=== PATIENT | female | born 1950 | race Caucasian/White ===

== ENCOUNTER 2017-07-07 09:35 | Outpatient (CLI) | payer MEDICARE, BC ==
--- NOTE | 2017-07-07 12:25 | MRI ---
LEFT SHOULDER MRI WITHOUT IV CONTRAST: Date: 07/07/17 HISTORY: 67-year-old female with left shoulder pain. TECHNIQUE: Multiplanar, multisequence MRI examination of the left shoulder is performed. FINDINGS: There is marked AC joint arthrosis with prominent hypertrophic osteophytosis with prominent downslopi ng of the lateral acromion with an undersurface spur of the lateral acromion, as well as some downslo ping of the anterior acromion. There is a complete full thickness supraspinatus tendon tear with extr action back to near the level of the glenoid. This tear extends into the anterior infraspinatus tendo n. The more posterior fibers of the infraspinatus tendon appear intact. There is some associated fatemeh mination of the infraspinatus tendon extending to the myotendinous junction. There is no intact bicep s tendon seen consistent with complete tear and retraction. The subscapularis tendon is very attenuat ed, particularly in the cranial portion consistent with an incomplete thickness tear. Multiple lesser tuberosity subchondral cystic changes are noted. There is very severely blunting superior labrum whi ch may be related to biceps tear or severe degenerative change. There are tears of the superior labru m with some anterior and posterior extension. There is moderate muscle volume loss of the supraspinatus and infraspinatus muscles, and mild muscle volume loss of the subscapularis muscle. IMPRESSION: Severe AC joint hypertrophic changes with downsloping of anterior and lateral acromion and undersurfa ce lateral acromial spur. Extensive rotator cuff tears as above. POS: [facility]
== END 2017-07-07 09:36 | disposition home or self-care (01) ==
LOC: TBSIIMAG 09:35
PROVIDERS: ATTEND Orthopaedic Surgery
DX: M75.102 Unspecified rotator cuff tear or rupture of left shoulder, not specified as traumatic (principal); M25.512 Pain in left shoulder; M75.92 Shoulder lesion, unspecified, left shoulder

== ENCOUNTER 2017-08-03 13:05 | Outpatient (CLI) | payer MEDICARE, BC ==
[2017-08-03 14:32] LABS: #Basophils 0.1 thou/uL (0.0-0.2); #Eosinphils 0.3 thou/uL (0.0-0.7); #Lymphocytes 1.7 thou/uL (1.20-3.40); #Monocytes 0.8 thou/uL (0.11-0.59); #Neutrophils 4.8 thou/uL (1.40-6.50); %Basophils 1.1 % (0.0-1.0); %Eosinophils 4.4 % (0.0-10.0); %Lymphocytes 22.4 % (21.0-51.0); %Monocytes 9.9 % (0.0-10.0); %Neutrophils 62.2 % (42.0-75.0); Hemoglobin 11.3 g/dL (12.0-16.0); Mean Corpuscular HGB CONC 33.2 g/dL (32.0-36.0); Mean Corpuscular Hemoglobin 28.8 pg (27.0-31.0); Mean Corpuscular Volume 86.7 fl (81.0-99.0); Mean Platelet Volume 6.9 fL (7.4-10.4); Platelet Count 347 thou/uL (130-400); RBC Distribution Width 12.4 % (11.5-14.5); Red Blood Cell (RBC) Count 3.91 mill/uL (4.20-5.40); White Blood Cell (WBC) Count 7.7 thou/uL (4.8-10.8)
[2017-08-03 15:05] LABS: Anion Gap 8 mmol/L (10-20); BUN (Urea Nitrogen) 21 mg/dL (9.8-20.1); Calc. Creatinine Clearance 0 mL/min (70-130); Calcium 9.6 mg/dL (7.8-10.44); Carbon Dioxide 26 mmol/L (23-31); Chloride 102 mmol/L (98-107); Estimated GFR-MDRD 78; Glucose 93 mg/dL (80-115); Potassium 3.1 mmol/L (3.5-5.1); Sodium 133 mmol/L (136-145)
--- NOTE | 2017-08-03 20:28 | EKG ---
Test Reason : Blood Pressure : / mmHG Vent. Rate : 070 BPM Atrial Rate : 070 BPM P-R Int : 170 ms QRS Dur : 094 ms QT Int : 418 ms P-R-T Axes : 068 067 057 degrees QTc Int : 451 ms Normal sinus rhythm Normal ECG When compared with ECG of 06-MAY-2009 09:03, Nonspecific T wave abnormality now evident in Anterior leads QT has lengthened Confirmed by KERI JIMENEZ (2) on 08/03/2017 8:28:20 PM Referred By: AUR[facility]A Confirmed By:KERI JIMENEZ
== END 2017-08-03 13:06 | disposition home or self-care (01) ==
LOC: LABBT 13:05
PROVIDERS: ATTEND Orthopaedic Surgery
DX: Z01.818 Encounter for other preprocedural examination (principal); M75.102 Unspecified rotator cuff tear or rupture of left shoulder, not specified as traumatic
CPT/HCPCS: 80048; 85025; 93005; 93010

== ENCOUNTER 2017-08-04 06:19 | Day surgery (SDC) | payer MEDICARE, BC ==
[2017-08-03 13:30] VITALS: BMI 28.3
[2017-08-04] MEDS ORDERED: Lidocaine 2% Jelly 5 ML TUBE ONE (06:22)
[2017-08-04] MEDS ORDERED: Ondansetron HCl/PF 4 MG/2 ML Vial ONE ×2 (06:22→09:40)
[2017-08-04] MEDS ORDERED: CEFAZOLIN/Water 2 GM/20 ML SYRINGE ONE (06:42)
[2017-08-04] MEDS ORDERED: Fentanyl 100 MCG/2 ML VIAL ONE (06:43)
[2017-08-04] MEDS ORDERED: Midazolam HCl 2 mg/2 ml Vial ONE (06:43)
[2017-08-04] MEDS ORDERED: Ropivacaine HCl/PF 1,100 MG in Sodium Chloride 0.9% 440 ML NERVE BLCK SCH (07:35)
[2017-08-04] MEDS ORDERED: Ondansetron HCl/PF 4 MG/2 ML Vial IVP PRN (07:35)
[2017-08-04] MEDS ORDERED: Promethazine HCl 25 MG/ML VIAL IM PRN (07:35)
[2017-08-04] MEDS ORDERED: traMADol HCl 50 MG TAB PO PRN ×2 (07:35)
[2017-08-04] MEDS ORDERED: Zolpidem Tartrate 5 MG TAB PO PRN (07:35)
[2017-08-04] MEDS ORDERED: HYDROcodone/Acetaminophen 10/325 mg Tablet PO PRN ×2 (07:35)
[2017-08-04] MEDS ORDERED: Fentanyl 100 MCG/2 ML VIAL IV PRN (07:36)
[2017-08-04] MEDS ORDERED: Dexamethasone 20 MG/5 ML VIAL ONE (09:40)
[2017-08-04] MEDS ORDERED: PHENYLEPHRINE-NS 100 MCG/ML 10 ML SYRINGE ONE (09:40)
[2017-08-04] MEDS ORDERED: PROPOFOL 200 MG/20 ML VIAL ONE (09:40)
[2017-08-04] MEDS ORDERED: Ropivacaine 0.5% HCl/PF (150 MG/30 ML VIAL) ONE (11:51)
[2017-08-04] MEDS ORDERED: Ropivacaine 0.2% HCl/PF (40 MG/20 ML VIAL) ONE (11:51)
[2017-08-04] MEDS ORDERED: Ketorolac Tromethamine 30 MG/ML VIAL IVP SCH (12:00)
--- NOTE | 2017-08-04 15:22 | OP ---
DATE OF PROCEDURE: 08/04/2017 PREOPERATIVE DIAGNOSES: Left shoulder impingement, AC joint arthritis and massive rotator cuff tear. POSTOPERATIVE DIAGNOSES: 1. Left shoulder impingement, AC joint arthritis and massive rotator cuff tear. 2. The patient had performed an auto biceps tenodesis to the cuff and the biceps was no longer attac hed to the superior labrum. PROCEDURE: Left shoulder open subacromial decompression, open distal clavicle excision and open rota tor cuff repair. SURGEON: Daniel Green M.D. [employer] FINAL INSPECTOR: Abdifatah Garcia PA-C. BLOOD LOSS: 50 mL. ANESTHESIA: The patient had general anesthetic, also had a block. IMPLANTS: We used two Arthrex double loaded rotator cuff anchors, one Arthrex triple loaded rotator cuff anchor and we used two BioComposite 4.75 mm SwiveLocks for double row repair. DISPOSITION: She did go to the recovery room in stable condition. INDICATIONS: A 67-year-old female who is active, who has been having problems with left shoulder tom n and weakness and at this time has decided to have her shoulder repaired. DESCRIPTION OF PROCEDURE: After all appropriate consent forms were explained and signed, Ms. Echols was taken to the operating room and was given a general anesthetic. She was then placed in a beach chair position and all bony prominences were well padded. At this time, the left shoulder and upper extremity were prepped and draped in standard surgical fashion. Incision line was made with a 10 yisel de down through skin. Bovie was used to coagulate any brisk venous bleeding. Full thickness flaps w ere taken to expose the AC joint as well as the anterior acromion and at this time, a saw was used to perform an anterior inferior acromioplasty as well as a distal clavicle resection. All bony edges w ere smoothed off with a rasp. We then thoroughly irrigated and dried. At this time, we removed the bursa and were able to obtain good visualization of the rotator cuff. The rotator cuff was torn from the superior aspect of the subscapularis, back aspect of the infraspinatus or beginning of teres. I t had some retraction in the back corner, had a small L split in the tendon itself. All edges of the tendon were freshened up with a knife or scissors. At this time, soft tissue was removed off of the tuberosity using a knife and a rongeur. The wound and the joint were thoroughly irrigated. We pull ed traction on the arm and we were able to visualize inside the glenohumeral joint. The biceps tendo n was no longer attached to the superior labrum and it was tucked in the underlying portion of the ro tator cuff and so we decided since she is already auto tenodesis, we would leave this alone. At this time, we placed a double anchor in the superior footprint of the subscapularis and the stitches were run through the top of the subscapularis and the superior portion of the capsule. These were tied a nd cut. A triple loaded anchor and double-loaded anchor were then placed more posteriorly and all th e sutures were run through the supra and infraspinatus in mattress fashion and the L split was closed down by placing one arm of each suture through each side of the L split and these were tied tight. The split was closed down as well as pull the tendon down to the bone. We then split the sutures and brought these further down the lateral aspect of the arm into two 4.75 mm BioComposite SwiveLocks in standard fashion. At this time, we took the arm through full range of motion. The rotator cuff was repaired in its entirety and at this time, we thoroughly irrigated again with some saline. We then used multiple interrupted #1 Ethibond sutures to reapproximate our deltoid through the acromion. We then over ran this with a running #2 Vicryl, 2-0 Vicryl, and surgical sirisha were then used for skin . Bulky sterile dressing was applied and at this time, the patient was awakened and taken to the rec overy room in stable condition. All counts were correct at the end of the case and she did receive p reoperative IV antibiotics.
== END 2017-08-04 13:06 | disposition home or self-care (01) ==
LOC: SDC 06:19
PROVIDERS: ATTEND Orthopaedic Surgery
PROC: 0LQ20ZZ Repair Left Shoulder Tendon, Open Approach (ICD-10-PCS; principal; 2017-08-04)
PROC: 0RQH0ZZ Repair Left Acromioclavicular Joint, Open Approach (ICD-10-PCS; 2017-08-04)
PROC: 0PBB0ZZ Excision of Left Clavicle, Open Approach (ICD-10-PCS; 2017-08-04)
DX: M75.102 Unspecified rotator cuff tear or rupture of left shoulder, not specified as traumatic (principal); M75.42 Impingement syndrome of left shoulder; M19.012 Primary osteoarthritis, left shoulder; I10 Essential (primary) hypertension; Z79.1 Long term (current) use of non-steroidal anti-inflammatories (NSAID); Z79.82 Long term (current) use of aspirin; Z79.899 Other long term (current) drug therapy; Z88.5 Allergy status to narcotic agent
CPT/HCPCS: 23120; 23412; C1713 ×2; J1100; J2250; J2405; J2704; J2795; J3010; J7050

== ENCOUNTER 2017-11-16 09:05 | Day surgery (SDC) | payer MEDICARE, BC ==
[2017-11-15 12:53] VITALS: BMI 28.3
[2017-11-16] MEDS ORDERED: Midazolam HCl 2 mg/2 ml Vial ONE (09:53)
[2017-11-16] MEDS ORDERED: Fentanyl 100 MCG/2 ML VIAL ONE ×2 (09:53→10:37)
[2017-11-16] MEDS ORDERED: CEFAZOLIN/Water 2 GM/20 ML SYRINGE ONE (10:39)
[2017-11-16 10:41] LABS: #Basophils 0.1 thou/uL (0.0-0.2); #Eosinphils 0.3 thou/uL (0.0-0.7); #Lymphocytes 1.5 thou/uL (1.20-3.40); #Monocytes 0.7 thou/uL (0.11-0.59); #Neutrophils 4.5 thou/uL (1.40-6.50); %Eosinophils 4.1 % (0.0-10.0); %Lymphocytes 21.3 % (21.0-51.0); %Monocytes 9.4 % (0.0-10.0); %Neutrophils 64.2 % (42.0-75.0); Mean Corpuscular HGB CONC 33.1 g/dL (32.0-36.0); Mean Corpuscular Hemoglobin 29.4 pg (27.0-31.0); Mean Corpuscular Volume 88.6 fL (78.0-98.0); Mean Platelet Volume 6.8 fL (7.4-10.4); Platelet Count 347 thou/uL (130-400); RBC Distribution Width 12.5 % (11.5-14.5); Red Blood Cell (RBC) Count 3.75 mill/uL (4.20-5.40)
[2017-11-16 11:07] LABS: Anion Gap 12 mmol/L (10-20); BUN (Urea Nitrogen) 19 mg/dL (9.8-20.1); Calc. Creatinine Clearance 81 mL/min (70-130); Calcium 9.6 mg/dL (7.8-10.44); Carbon Dioxide 27 mmol/L (23-31); Chloride 103 mmol/L (98-107); Estimated GFR-MDRD 75; Glucose 96 mg/dL (80-115); Potassium 4.4 mmol/L (3.5-5.1); Sodium 138 mmol/L (136-145)
--- NOTE | 2017-11-16 12:22 | OP ---
DATE OF PROCEDURE: 11/16/2017 PREOPERATIVE DIAGNOSIS: Right distal radius fracture. POSTOPERATIVE DIAGNOSIS: Right distal radius fracture. SURGEON: Daniel Green M.D. [employer] OFFICER: Abdifatah Garcia PA-C. BLOOD LOSS: Minimal. COMPLICATIONS: None. ANESTHESIA: The patient had general anesthetic, she had a preoperative block. IMPLANTS: To the right wrist, Synthes distal radius plate with multiple screws. CONDITION: She did go to the recovery room in stable condition. PROCEDURES: 1. Open reduction internal fixation Right distal radius 2. Placement of short-arm volar splint, right upper extremity. INDICATIONS: Ms. Rosario is a 67-year-old active female who broke her wrist and was felt that she had poor alignment and it would be best for her to have this fixed. The patient agrees and at this time is presenting for open reduction internal fixation. DESCRIPTION OF PROCEDURE: After above appropriate consent forms were explained and signed, she was taken to the operating room and at this time was given general anesthetic. Once anesthesia was appropriate, the patient had a tourniquet placed on the right arm and the right upper extremity was prepped and draped in standard surgical fashion. Limb was exsanguinated and tourniquet taken up to 250 mmHg. Using loupe magnification, a 15 blade was used to incise skin only. Bipolar cautery was then used to coagulate any brisk venous bleeding. The flexor tendon sheath was opened up, the FCR tendon was taken ulnarly. We then used a new blade to open up the floor of the FCR tendon. Soft tissues were then swept ulnarly to expose the pronator. Pronator was sharply taken off the underlying distal radius. Elevator was used to expose the fracture line as well as the bone distal to this as well as proximal to this. Once this was done, we were thoroughly irrigated out our clot. We then performed manual reduction. Applied a plate, pinned this in place, checked our alignment and placement of our plate and once we felt it was good, we placed one bicortical screw along the shaft. We then placed locking screws along the distal row and two more cortical screws proximally. Final films were taken. We then thoroughly irrigated and dried. We were able to place a couple of Vicryl sutures to reapproximate tissue across the plate and along the deep tissue plane. We then placed the sheath tissue over top of the FCR tendon. We then used some nylon sutures to close skin. At this time, a bulky sterile dressing was applied as well as a volar splint. The patient was then awakened and taken to the recovery room in stable condition. All counts were correct at the end of the case. She received preoperative IV antibiotics. Once the tourniquet was let down, the fingers pinked up nicely. NELLY
--- NOTE | 2017-11-16 14:40 | RAD ---
RIGHT WRIST THREE VIEWS: Date: 11-16-17 Provided Clinical History: Post op. FINDINGS: Post-operative changes of volar plate and screw fixation of the distal radial fracture demonstrated. IMPRESSION: As above. POS: [facility]
== END 2017-11-16 14:18 | disposition home or self-care (01) ==
LOC: SDC 09:05
PROVIDERS: ATTEND Orthopaedic Surgery
PROC: 0PSH04Z Reposition Right Radius with Internal Fixation Device, Open Approach (ICD-10-PCS; principal; 2017-11-16)
DX: S52.501A Unspecified fracture of the lower end of right radius, initial encounter for closed fracture (principal); I10 Essential (primary) hypertension; Z79.1 Long term (current) use of non-steroidal anti-inflammatories (NSAID); Z79.82 Long term (current) use of aspirin; Z79.899 Other long term (current) drug therapy; Z96.652 Presence of left artificial knee joint; Z98.890 Other specified postprocedural states; X58.XXXA Exposure to other specified factors, initial encounter
CPT/HCPCS: 25607; 73110; 76001; 80048; 85025; C1713 ×2; J2250; J3010

== ENCOUNTER 2022-02-24 09:51 | Outpatient (CLI) | payer MEDICARE | END 2022-02-24 09:52 | disposition home or self-care (01) | LOC: LABBT 09:51 | PROVIDERS: ATTEND Orthopaedic Surgery | DX: Z01.818 Encounter for other preprocedural examination (principal); M17.11 Unilateral primary osteoarthritis, right knee | CPT/HCPCS: 71046; 93005; 93010 ==

== ENCOUNTER 2022-03-01 05:38 | Observation (INO) | payer MEDICARE ==
[2022-02-24 11:14] LABS: Bilirubin Neg (Negative); Blood, Urine 25 (Negative); Clarity Clear (Clear); Glucose, Urine (Dipstick) Normal (Negative); Ketone, Urine Negative (Negative); Leukocyte Negative (Negative); Nitrite Negative (Negative); Protein, Urine (Dipstick) Negative (Neg-Trace); Specific Gravity, Urine 1.015 (1.005-1.030); Urobilinogen Normal mg/dL (Less than 2)
[2022-02-24 11:25] LABS: #Basophils 0.1 10x3/uL (0.0-0.2); #Eosinphils 0.4 10x3/uL (0.0-0.5); #Monocytes 0.7 10x3/uL (0.0-1.1); #Neutrophils 4.5 10x3/uL (1.5-8.4); %Eosinophils 5.5 % (0.0-6.0); %Lymphocytes 20.5 % (18.0-47.0); %Monocytes 9.3 % (0.0-10.0); %Neutrophils 63.3 % (40.0-75.0); Mean Corpuscular HGB CONC 33.9 g/dL (32.0-36.0); Mean Corpuscular Hemoglobin 31.4 pg (27.0-33.0); Mean Corpuscular Volume 92.7 fl (81.6-98.3); Mean Platelet Volume 9.7 fl (7.4-10.4); Platelet Count 321 10x3/uL (150-450); RBC Distribution Width 12.5 % (11.5-14.5); Red Blood Cell (RBC) Count 3.82 10x6/uL (3.90-5.03); White Blood Cell (WBC) Count 7.1 10x3/uL (3.5-10.5)
[2022-02-24 11:54] LABS: Prothrombin Time 10.4 sec (9.5-12.1)
[2022-02-24 12:00] LABS: Anion Gap 13 mmol/L (10-20); BUN (Urea Nitrogen) 25 mg/dL (9.8-20.1); Calc. Creatinine Clearance 0 mL/min (70-130); Calcium 9.8 mg/dL (7.8-10.44); Carbon Dioxide 26 mmol/L (23-31); Chloride 102 mmol/L (98-107); Estimated GFR 69; Glucose 103 mg/dL (83-110); Potassium 3.8 mmol/L (3.5-5.1); Sodium 137 mmol/L (136-145)
[2022-02-26 09:00] VITALS: BMI 23.3
[2022-03-01] MEDS ORDERED: Vancomycin 1 GM/200 ML (FROZEN) BAG ONE (06:04)
[2022-03-01] MEDS ORDERED: Tranexamic Acid 1,000 MG/10 ML VIAL ONE ×2 (06:04→09:27)
[2022-03-01] MEDS ORDERED: Sodium Chloride 0.9% 100 ML ONE ×2 (06:04→07:00)
[2022-03-01] MEDS ORDERED: fentaNYL PF 100 MCG/2 ML SYRINGE ONE (06:15)
[2022-03-01] MEDS ORDERED: Bupivacaine PF 0.5% 30 ML VIAL ONE ×2 (06:22→06:46)
[2022-03-01] MEDS ORDERED: FENTANYL 50 MCG/ML 1 ML VIAL ONE ×5 (06:45→10:18)
[2022-03-01] MEDS ORDERED: Midazolam HCl 2 mg/2 ml Vial ONE (06:45)
[2022-03-01 06:48] LABS: SARS-CoV-2 NAA Rapid Test Not Detected (NotDetected)
[2022-03-01] MEDS ORDERED: CEFAZOLIN 2 GM VIAL ONE (07:00)
[2022-03-01] MEDS ORDERED: Dexamethasone 20 MG/5 ML VIAL ONE (07:21)
[2022-03-01] MEDS ORDERED: Ondansetron PF 4 MG/2 ML Vial ONE ×2 (07:21→09:41)
[2022-03-01] MEDS ORDERED: PROPOFOL 200 MG/20 ML VIAL ONE (07:21)
[2022-03-01] MEDS ORDERED: HYDROcodone/Acetaminophen 10/325 mg Tablet PO PRN ×2 (07:45)
[2022-03-01] MEDS ORDERED: Promethazine HCl 25 MG/ML VIAL IM PRN ×2 (07:45→09:03)
[2022-03-01] MEDS ORDERED: Ropivacaine 0.2% 550 ML 550 ML NERVE BLCK SCH (07:45)
[2022-03-01] MEDS ORDERED: Ondansetron PF 4 MG/2 ML Vial IVP PRN (07:45)
[2022-03-01] MEDS ORDERED: traMADol HCl 50 MG TAB PO PRN (07:45)
[2022-03-01] MEDS ORDERED: Zolpidem Tartrate 5 MG TAB PO PRN ×2 (07:45→09:03)
[2022-03-01] MEDS ORDERED: diphenhydrAMINE 25 MG CAP PO PRN (09:03)
[2022-03-01] MEDS ORDERED: Acetaminophen 325 MG TAB PO PRN (09:03)
[2022-03-01] MEDS ORDERED: Tranexamic Acid 1,000 MG in Sodium Chloride 0.9% 100 ML IVPB SCH (09:15)
[2022-03-01] MEDS ORDERED: FENTANYL 50 MCG/ML 1 ML VIAL SLOW IVP PRN (10:21)
[2022-03-01] MEDS: FENTANYL 50 MCG/ML 1 ML VIAL SLOW IVP PRN (11:46)
[2022-03-01] MEDS: Ketorolac Tromethamine 30 MG/ML VIAL IVP SCH ×2 (13:04→22:54)
[2022-03-01] MEDS: Sodium Chloride 0.9% 1,000 ML IV SCH ×2 (13:07→17:37)
[2022-03-01] MEDS: CEFAZOLIN 2 GM in Sodium Chloride 0.9% 100 ML IVPB SCH ×2 (14:31→22:54)
[2022-03-01] MEDS: traMADol HCl 50 MG TAB PO PRN (17:30)
[2022-03-01] MEDS ORDERED: Vancomycin 1 GM in Premix Bag 1 BAG IVPB SCH (18:00)
[2022-03-01] MEDS: carBAMazepine 200 MG TAB PO SCH (20:52)
[2022-03-01] MEDS: Amlodipine 5 MG TAB PO SCH (20:53)
[2022-03-01] MEDS: Senokot S 8.6-50 MG TAB PO SCH (20:53)
[2022-03-01] MEDS: Ferrous Gluconate 324 MG TAB PO SCH (20:53)
[2022-03-01] MEDS: Lisinopril 20 MG TAB PO SCH (20:54)
[2022-03-01] MEDS: Atorvastatin Calcium 10 MG TAB PO SCH (20:54)
[2022-03-01] MEDS: Aspirin 81 mg Enteric Coated Tablet PO SCH (20:54)
[2022-03-01] MEDS ORDERED: Aspirin 81 mg Enteric Coated Tablet PO SCH (21:00)
[2022-03-01] MEDS ORDERED: Non-Formulary Item 1 EACH (Iron [Iron] 18 MG Tablet) PO SCH (21:00)
[2022-03-02] MEDS: traMADol HCl 50 MG TAB PO PRN ×2 (01:33→11:46)
[2022-03-02] MEDS: Sodium Chloride 0.9% 1,000 ML IV SCH ×2 (04:22→17:59)
[2022-03-02] MEDS: Ketorolac Tromethamine 30 MG/ML VIAL IVP SCH ×3 (05:46→21:27)
[2022-03-02 06:33] LABS: Hemoglobin 10.1 g/dL (12.0-16.0); Mean Corpuscular HGB CONC 31.7 g/dL (32.0-36.0); Mean Corpuscular Hemoglobin 30.8 pg (27.0-31.0); Mean Corpuscular Volume 97.2 fl (78.0-98.0); Mean Platelet Volume 7.3 fL (7.4-10.4); Platelet Count 227 10x3/uL (130-400); RBC Distribution Width 11.3 % (11.5-14.5); Red Blood Cell (RBC) Count 3.28 mill/uL (4.20-5.40); White Blood Cell (WBC) Count 9.2 10x3/uL (4.8-10.8)
[2022-03-02] MEDS: Aspirin 81 mg Enteric Coated Tablet PO SCH ×2 (09:18→20:10)
[2022-03-02] MEDS: Senokot S 8.6-50 MG TAB PO SCH ×2 (09:18→20:13)
[2022-03-02] MEDS: Cholecalciferol 1,000 UNITS (25 MCG) TAB PO SCH (09:19)
[2022-03-02] MEDS: Multivitamin W/ Minerals 1 TAB PO SCH (09:19)
[2022-03-02] MEDS: Amlodipine 5 MG TAB PO SCH ×2 (09:19→20:09)
[2022-03-02] MEDS: Hydrochlorothiazide 25 MG TAB PO SCH (09:19)
[2022-03-02] MEDS: Ferrous Gluconate 324 MG TAB PO SCH ×2 (09:19→20:11)
[2022-03-02] MEDS: FENTANYL 50 MCG/ML 1 ML VIAL SLOW IVP PRN ×2 (09:19→22:36)
[2022-03-02] MEDS: HYDROcodone/Acetaminophen 10/325 mg Tablet PO PRN ×3 (17:30→21:37)
[2022-03-02] MEDS: Ondansetron PF 4 MG/2 ML Vial IVP PRN (17:30)
[2022-03-02] MEDS: Atorvastatin Calcium 10 MG TAB PO SCH (20:10)
[2022-03-02] MEDS: carBAMazepine 200 MG TAB PO SCH (20:11)
[2022-03-02] MEDS: Lisinopril 20 MG TAB PO SCH (20:12)
[2022-03-03] MEDS: Sodium Chloride 0.9% 1,000 ML IV SCH ×2 (01:19→10:59)
[2022-03-03] MEDS: HYDROcodone/Acetaminophen 10/325 mg Tablet PO PRN ×2 (02:24→06:04)
[2022-03-03 05:47] LABS: Hemoglobin 10.1 g/dL (12.0-16.0); Mean Corpuscular HGB CONC 32.3 g/dL (32.0-36.0); Mean Corpuscular Hemoglobin 31.5 pg (27.0-31.0); Mean Corpuscular Volume 97.8 fl (78.0-98.0); Mean Platelet Volume 7.2 fL (7.4-10.4); Platelet Count 191 10x3/uL (130-400); RBC Distribution Width 11.2 % (11.5-14.5); Red Blood Cell (RBC) Count 3.21 mill/uL (4.20-5.40); White Blood Cell (WBC) Count 7.6 10x3/uL (4.8-10.8)
[2022-03-03] MEDS: Ketorolac Tromethamine 30 MG/ML VIAL IVP SCH ×2 (06:04→14:16)
[2022-03-03] MEDS: Senokot S 8.6-50 MG TAB PO SCH (09:15)
[2022-03-03] MEDS: Hydrochlorothiazide 25 MG TAB PO SCH (09:16)
[2022-03-03] MEDS: Multivitamin W/ Minerals 1 TAB PO SCH (09:16)
[2022-03-03] MEDS: Aspirin 81 mg Enteric Coated Tablet PO SCH (09:16)
[2022-03-03] MEDS: Amlodipine 5 MG TAB PO SCH (09:16)
[2022-03-03] MEDS: Ferrous Gluconate 324 MG TAB PO SCH (09:17)
[2022-03-03] MEDS: Cholecalciferol 1,000 UNITS (25 MCG) TAB PO SCH (09:17)
[2022-03-03] MEDS: Ondansetron PF 4 MG/2 ML Vial IVP PRN (10:33)
[2022-03-03 12:36] VITALS: BP 125/76; TEMP 98.1
== END 2022-03-03 15:05 | disposition home or self-care (01) ==
LOC: SDC 05:38 → EDSTATUS 10:00 → SJJU 11:37
PROVIDERS: ADMIT Orthopaedic Surgery; ATTEND Orthopaedic Surgery
PROC: 0SRC0J9 Replacement of Right Knee Joint with Synthetic Substitute, Cemented, Open Approach (ICD-10-PCS; principal; 2022-03-01)
DX: M17.11 Unilateral primary osteoarthritis, right knee (principal); I10 Essential (primary) hypertension; Z79.1 Long term (current) use of non-steroidal anti-inflammatories (NSAID); Z79.82 Long term (current) use of aspirin; Z79.899 Other long term (current) drug therapy; Z88.5 Allergy status to narcotic agent; Z88.8 Allergy status to other drugs, medicaments and biological substances; Z96.652 Presence of left artificial knee joint; Z20.822 Contact with and (suspected) exposure to COVID-19
CPT/HCPCS: 20985; 27447; 80048; 81003; 85025; 85027 ×2; 85610; 86850; 86900; 86901; 87081; 96374; 96375; 96376 ×3; 97110 ×3; 97116 ×2; 97530 ×2; A4306; C1713; C1776; G0378 ×3; J3010 ×2; J3370; U0002; 36415; J1100; J1885; J2250; J2405; J2704; J2795; J3490; J7050; S0020

== ENCOUNTER 2023-02-28 09:23 | Outpatient (CLI) | payer MEDICARE ==
[2023-02-28 11:42] LABS: #Basophils 0.1 10x3/uL (0.0-0.2); #Eosinphils 0.3 10x3/uL (0.0-0.5); #Monocytes 0.7 10x3/uL (0.0-1.1); #Neutrophils 5.6 10x3/uL (1.5-8.4); %Eosinophils 3.9 % (0.0-6.0); %Lymphocytes 14.7 % (18.0-47.0); %Monocytes 9.3 % (0.0-10.0); %Neutrophils 70.6 % (40.0-75.0); Hematocrit 38.7 % (34.9-44.5); Hemoglobin 12.9 g/dL (12.0-15.5); Mean Corpuscular HGB CONC 33.3 g/dL (32.0-36.0); Mean Corpuscular Hemoglobin 30.7 pg (27.0-33.0); Mean Corpuscular Volume 92.1 fl (81.6-98.3); Platelet Count 283 10x3/uL (150-450); RBC Distribution Width 12.2 % (11.5-14.5)
[2023-02-28 11:58] LABS: Anion Gap 14 mmol/L (10-20); BUN (Urea Nitrogen) 27 mg/dL (9.8-20.1); Calc. Creatinine Clearance 0 mL/min (70-130); Calcium 9.8 mg/dL (7.8-10.44); Carbon Dioxide 27 mmol/L (23-31); Chloride 103 mmol/L (98-107); Estimated GFR 69; Glucose 84 mg/dL (83-110); Potassium 3.7 mmol/L (3.5-5.1); Sodium 140 mmol/L (136-145)
[2023-02-28 12:03] LABS: Prothrombin Time 10.3 sec (9.5-12.1)
== END 2023-02-28 09:24 | disposition home or self-care (01) ==
LOC: LABBT 09:23
PROVIDERS: ATTEND Orthopaedic Surgery
DX: Z01.818 Encounter for other preprocedural examination (principal); M12.812 Other specific arthropathies, not elsewhere classified, left shoulder
CPT/HCPCS: 80048; 85025; 85610; 93005; 93010

== ENCOUNTER 2023-11-04 12:00 | Inpatient (IN) | payer MEDICARE ==
[2023-11-10] MEDS ORDERED: PROPOFOL 20 ML ONE (09:27)
[2023-11-10] MEDS ORDERED: fentaNYL PF 100 MCG/2 ML SYRINGE ONE (09:28)
[2023-11-10] MEDS ORDERED: Rocuronium Bromide 10 MG/ML (10ML VIAL) ONE (09:28)
[2023-11-10] MEDS ORDERED: CEFAZOLIN 2 GM VIAL ONE ×2 (09:41→17:17)
[2023-11-10] MEDS ORDERED: Sodium Chloride 0.9% 100 ML ONE ×4 (09:42→17:18)
[2023-11-10] MEDS ORDERED: Tranexamic Acid 1,000 MG/10 ML VIAL ONE (09:55)
[2023-11-10] MEDS ORDERED: Vancomycin 1 GM/200 ML (FROZEN) BAG ONE (09:55)
[2023-11-10] MEDS ORDERED: Midazolam HCl 2 mg/2 ml Vial ONE (09:59)
[2023-11-10] MEDS ORDERED: Ropivacaine 0.2% HCl/PF 20 ML ONE (09:59)
[2023-11-10] MEDS ORDERED: fentaNYL 50 mcg/mL 1 mL Vial ONE ×2 (09:59→13:37)
[2023-11-10] MEDS ORDERED: Ropivacaine 0.5% HCl/PF (150 MG/30 ML VIAL) ONE (09:59)
[2023-11-10] MEDS ORDERED: PHENYLEPHRINE-NS 100 MCG/ML 10 ML SYRINGE ONE (11:26)
[2023-11-10] MEDS ORDERED: fentaNYL 50 mcg/mL 1 mL Vial SLOW IVP PRN (11:38)
[2023-11-10] MEDS ORDERED: Promethazine HCl 25 MG/ML VIAL IM PRN (11:45)
[2023-11-10] MEDS ORDERED: traMADol HCl 50 MG TAB PO PRN ×2 (11:45)
[2023-11-10] MEDS ORDERED: Ropivacaine 0.2% 550 ML 550 ML NERVE BLCK SCH (11:45)
[2023-11-10] MEDS ORDERED: Zolpidem Tartrate 5 MG TAB PO PRN (11:45)
[2023-11-10] MEDS ORDERED: NEOSTIGMINE 3 MG/3 ML SYRINGE ONE ×2 (11:47→13:37)
[2023-11-10] MEDS ORDERED: Ondansetron PF 4 MG/2 ML Vial ONE (12:38)
[2023-11-10] MEDS ORDERED: Dexamethasone 20 MG/5 ML VIAL ONE (12:38)
[2023-11-10] MEDS ORDERED: Glycopyrrolate 0.2 MG/ML 5 ML SYRINGE ONE (13:37)
[2023-11-10] MEDS ORDERED: diphenhydrAMINE 50 MG CAP PO PRN (14:24)
[2023-11-10] MEDS ORDERED: Acetaminophen 325 MG TAB PO PRN (14:24)
[2023-11-10] MEDS ORDERED: Bisacodyl 10 MG SUPP PR PRN (14:24)
[2023-11-10] MEDS: CEFAZOLIN 2 GM in Sodium Chloride 0.9% 100 ML IVPB SCH (20:14)
[2023-11-10] MEDS: Calcium Carbonate 600 MG + Vit D TAB PO SCH (20:14)
[2023-11-10] MEDS: Famotidine 20 MG TAB PO SCH (20:15)
[2023-11-10] MEDS: Losartan 25 MG TAB PO SCH (20:15)
[2023-11-10] MEDS: carBAMazepine 200 MG TAB PO SCH (20:15)
[2023-11-10] MEDS: Amlodipine 5 MG TAB PO SCH (20:15)
[2023-11-10] MEDS: Atorvastatin Calcium 10 MG TAB PO SCH (20:16)
[2023-11-10] MEDS: Sodium Chloride 0.9% 1,000 ML IV SCH (20:16)
[2023-11-10] MEDS: Ferrous Sulfate 325 MG TAB PO SCH (20:16)
[2023-11-10 21:00] LABS: Carbamazepine-Tegretol 2.3 ug/mL (4.0-12.0)
[2023-11-10 21:29] VITALS: BMI 23.9
[2023-11-11 06:03] LABS: Hematocrit 24.5 % (36.0-47.0); Mean Corpuscular HGB CONC 32.7 g/dL (32.0-36.0); Mean Corpuscular Hemoglobin 31.3 pg (27.0-31.0); Mean Corpuscular Volume 95.7 fL (78.0-98.0); Mean Platelet Volume 9.3 fL (7.4-10.4); Platelet Count 281 10x3/uL (130-400); RBC Distribution Width 13.4 % (11.5-14.5); Red Blood Cell (RBC) Count 2.56 mill/uL (4.20-5.40)
[2023-11-11 06:06] LABS: Anion Gap 12 mmol/L (10-20); BUN (Urea Nitrogen) 20 mg/dL (9.8-20.1); Calc. Creatinine Clearance 57 mL/min (70-130); Calcium 8.1 mg/dL (7.8-10.44); Carbon Dioxide 27 mmol/L (23-31); Chloride 103 mmol/L (98-107); Estimated GFR 72; Glucose 86 mg/dL (83-110); Magnesium 1.4 mg/dL (1.6-2.6); Sodium 139 mmol/L (136-145)
[2023-11-11 06:34] LABS: Band 4 % (5-11); Hypochromia SLIGHT = 6-15 cells HPF (0-5); Lymphocytes 9 % (21-51); Macrocytosis SLIGHT = 6-15 cells HPF (0-5); Metamyelocyte 3 % (0-0); Monocytes 11 % (0-10); Myelocyte 1 % (0-0); Neutrophil 73 % (42-75); Platelet Adequacy Comment Platelets Normal; Smudge Cells 3.9 %
[2023-11-11] MEDS: Vit A,C & E/Lutein/Minerals Tablet PO SCH (08:06)
[2023-11-11] MEDS: HYDROcodone/Acetaminophen 10/325 mg Tablet PO PRN (08:06)
[2023-11-11] MEDS: Potassium Chloride 20 MEQ TAB PO SCH ×2 (08:06→13:06)
[2023-11-11] MEDS: Hydrochlorothiazide 25 MG TAB PO SCH (08:06)
[2023-11-11] MEDS: Cholecalciferol 1,000 UNITS (25 MCG) TAB PO SCH (08:06)
[2023-11-11] MEDS: Magnesium Sulfate In Water 4 GM in Premix 1 BAG IVPB SCH (08:07)
[2023-11-11] MEDS: Ondansetron PF 4 MG/2 ML Vial IVP PRN (09:05)
[2023-11-11] MEDS ORDERED: Polyethylene Glycol 3350 17 GM Packet PO PRN (12:46)
[2023-11-11] MEDS: Aspirin 81 mg Enteric Coated Tablet PO SCH (20:10)
[2023-11-11] MEDS: Senokot S 8.6-50 MG TAB PO SCH (20:10)
[2023-11-11 20:30] VITALS: TEMP 98.2
[2023-11-12 06:44] LABS: Anion Gap 8 mmol/L (10-20); BUN (Urea Nitrogen) 14 mg/dL (9.8-20.1); Calc. Creatinine Clearance 66 mL/min (70-130); Calcium 8.4 mg/dL (7.8-10.44); Carbon Dioxide 30 mmol/L (23-31); Chloride 103 mmol/L (98-107); Estimated GFR 87; Glucose 95 mg/dL (83-110); Magnesium 1.9 mg/dL (1.6-2.6); Potassium 3.6 mmol/L (3.5-5.1); Sodium 137 mmol/L (136-145)
[2023-11-12] MEDS ORDERED: Magnesium 2 GM/50 ML(in water) 2 GM in Premix 1 BAG IVPB SCH (09:30)
[2023-11-12 13:52] VITALS: BP 114/68
[2023-11-12] MEDS: HYDROcodone/Acetaminophen 10/325 mg Tablet PO PRN (14:37)
[2023-11-12] MEDS ORDERED: Losartan 25 MG TAB PO SCH (21:00)
[2023-11-12] MEDS ORDERED: Amlodipine 5 MG TAB PO SCH (21:00)
== END 2023-11-12 14:56 | disposition home or self-care (01) | DRG 493 ==
LOC: SURG A 11-10 08:44 → EDSTATUS 11-10 12:00 → SURG A 11-10 18:44
PROVIDERS: ADMIT Orthopaedic Surgery; ATTEND Orthopaedic Surgery
PROC: 0PSG04Z Reposition Left Humeral Shaft with Internal Fixation Device, Open Approach (ICD-10-PCS; principal; 2023-11-10)
DX: S42.392A Other fracture of shaft of left humerus, initial encounter for closed fracture (principal); M97.32XA Periprosthetic fracture around internal prosthetic left shoulder joint, initial encounter; Z96.612 Presence of left artificial shoulder joint; Z96.653 Presence of artificial knee joint, bilateral; E78.5 Hyperlipidemia, unspecified; I10 Essential (primary) hypertension; R29.6 Repeated falls; E87.6 Hypokalemia; E83.42 Hypomagnesemia; Z88.5 Allergy status to narcotic agent; Z88.8 Allergy status to other drugs, medicaments and biological substances; Z91.048 Other nonmedicinal substance allergy status; Z98.51 Tubal ligation status; Z79.899 Other long term (current) drug therapy; Z79.82 Long term (current) use of aspirin; Z79.891 Long term (current) use of opiate analgesic; M19.90 Unspecified osteoarthritis, unspecified site; W19.XXXA Unspecified fall, initial encounter; Y93.89 Activity, other specified; Y92.89 Other specified places as the place of occurrence of the external cause
CPT/HCPCS: 36415; 80048; 80156; 83735; 84443; 85025; A4306; C1713; C1889; J1100; J2250; J2405; J2704; J2795; J3010; J3370-JW; J3475; J7030